=== PATIENT | male | born 1955 | race African-American/Black ===

== ENCOUNTER 2018-02-08 11:35 | Observation (INO) ==
[2018-02-08] MEDS ORDERED: DEXTROSE 5% NACL 0.45% 1,000 ML IV SCH (13:49)
[2018-02-08] MEDS ORDERED: MAGNESIUM SULF RIDER 4 GM in PREMIX 1 EACH IV PRN (13:49)
[2018-02-08] MEDS ORDERED: MAGNESIUM SULF RIDER 2 GM in PREMIX 1 EACH IV PRN (13:49)
[2018-02-08] MEDS ORDERED: guaiFENesin/DM ER 600-30 MG TABLET PO PRN (14:33)
[2018-02-08] MEDS ORDERED: ONDANSETRON 4 MG/2 ML VIAL IV PRN (14:33)
[2018-02-08] MEDS ORDERED: BISACODYL 5 MG TABLET PO PRN (14:33)
[2018-02-08] MEDS ORDERED: ZALEPLON 5 MG CAPSULE PO PRN (14:33)
[2018-02-08] MEDS ORDERED: ALBUTEROL 2.5 MG/3 ML NEB RESP TX PRN (15:06)
[2018-02-08] MEDS ORDERED: NON-FORMULARY MEDICATION (Albuterol Sulfate [Ventolin Hfa] 2 PUFF) INH PRN (15:06)
[2018-02-08 15:33] LABS: Albumin 3.5 G/DL (3.4-5.0); Bilirubin,Total 1.1 MG/DL (0.2-1.0); Calcium 8.8 MG/DL (8.5-10.1); Osmolality,Calculated 281.4 MOS/KG (273-304); Potassium 4.1 MMOL/L (3.5-5.1); Total Protein 7.4 G/DL (6.4-8.3)
[2018-02-08] MEDS ORDERED: ALUM/MAG/SIMETH/LIDO VISC 1:1 30 ML BOTTLE PO ONE (15:38)
[2018-02-08 17:47] LABS: Troponin I Only < 0.015 NG/ML (0.00-0.045)
[2018-02-08] MEDS ORDERED: DABIGATRAN 150 MG CAPSULE PO SCH (21:00)
[2018-02-08 21:30] LABS: Troponin I Only < 0.015 NG/ML (0.00-0.045)
[2018-02-08] MEDS: CARVEDILOL 3.125 MG TABLET PO SCH (21:48)
[2018-02-09 05:15] LABS: Basophils % 0.1 % (0.0-0.8); Eosinophils # 0.2 10*3/uL (0.0-0.87); Hematocrit 39.1 VOL% (42.0-52.0); Hemoglobin 13.6 GM/DL (14.0-18.0); Immature Granulocytes % 0.1 %; Immature Granulocytes Absolute 0.01 #; Lymphocytes # 1.7 10*3/uL (1.4-4.0); Lymphocytes % 24.7 % (21.2-54.2); Mean Corpuscular HGB Conc 34.8 GM/DL (32-36); Mean Corpuscular Hemoglobin 30 PG (27-34); Mean Corpuscular Volume 86.7 FL (87-102); Mean Platelet Volume 10.6 FL (9.6-12.0); Monocytes # 0.7 10*3/uL (0.11-0.8); Neutrophils # 4.3 10*3/uL (1.4-7.4); Neutrophils % 62.1 % (38.7-73.9); Platelet Count 133 T/CUMM (130-400); Red Blood Count 4.51 MC/CUMM (3.8-5.5); Red Cell Distribution Width 13.5 % (9.3-17.3); White Blood Count 6.9 T/CUMM (4-12)
[2018-02-09 05:45] LABS: Calcium 8.7 MG/DL (8.5-10.1); Osmolality,Calculated 283.3 MOS/KG (273-304); Potassium 3.9 MMOL/L (3.5-5.1)
[2018-02-09 05:46] LABS: Risk Ratio 3.38; VLDL CHOLESTEROL 20.2 MG/DL
[2018-02-09] MEDS ORDERED: ceFAZolin 1,000 MG in SYRINGE 1 EACH IV ONE (08:48)
[2018-02-09] MEDS ORDERED: ceFAZolin 1,000 MG VIAL IRRIG ONE (08:48)
[2018-02-09] MEDS ORDERED: ASPIRIN EC 81 MG TABLET PO SCH (09:00)
[2018-02-09] MEDS ORDERED: LOSARTAN 50 MG TABLET PO SCH ×2 (09:00→10:55)
[2018-02-09] MEDS ORDERED: LOSARTAN 25 MG TABLET PO SCH (09:00)
[2018-02-09] MEDS ORDERED: FUROSEMIDE 40 MG TABLET PO SCH (09:00)
[2018-02-09] MEDS ORDERED: HEPARIN/NACL 0.9% 2 UNITS/ML 1,000 ML IV ONE (11:38)
[2018-02-09] MEDS ORDERED: LIDOCAINE 1% 20 ML VIAL ONE ×2 (11:38→11:44)
[2018-02-09] MEDS ORDERED: ceFAZolin 1,000 MG VIAL ONE (11:38)
[2018-02-09] MEDS ORDERED: TISSUE ADHESIVE 1 EACH APPLICATOR TOP ONE (12:27)
[2018-02-09] MEDS: CARVEDILOL 3.125 MG TABLET PO SCH (13:22)
[2018-02-09] MEDS ORDERED: PROPOFOL 200 MG/20 ML VIAL IV ONE (13:24)
[2018-02-09] MEDS ORDERED: fentaNYL 100 MCG/2 ML VIAL ONE (13:24)
[2018-02-09] MEDS ORDERED: MIDAZOLAM 2 MG/2 ML VIAL ONE (13:24)
[2018-02-09] MEDS ORDERED: SODIUM CHLORIDE 0.9% 250 ML IV ONE (13:25)
[2018-02-09] MEDS: PANTOPRAZOLE 40 MG TABLET PO SCH (13:41)
[2018-02-09] MEDS: FUROSEMIDE 40 MG TABLET PO SCH (13:42)
[2018-02-09] MEDS: CARVEDILOL 6.25 MG TABLET PO SCH ×2 (13:42→20:40)
[2018-02-09] MEDS ORDERED: ACETAMINOPHEN 325 MG TABLET PO PRN (19:01)
[2018-02-09] MEDS: ceFAZolin 1,000 MG in SYRINGE 1 EACH IV SCH (20:40)
[2018-02-10] MEDS: ceFAZolin 1,000 MG in SYRINGE 1 EACH IV SCH (03:56)
[2018-02-10 05:18] LABS: Basophils % 0.1 % (0.0-0.8); Eosinophils # 0.2 10*3/uL (0.0-0.87); Eosinophils % 2.6 % (0.00-10.9); Hematocrit 41.3 VOL% (42.0-52.0); Hemoglobin 13.8 GM/DL (14.0-18.0); Immature Granulocytes % 0.3 %; Immature Granulocytes Absolute 0.02 #; Lymphocytes # 1.7 10*3/uL (1.4-4.0); Lymphocytes % 21.3 % (21.2-54.2); Mean Corpuscular HGB Conc 33.4 GM/DL (32-36); Mean Corpuscular Hemoglobin 30 PG (27-34); Mean Corpuscular Volume 88.2 FL (87-102); Mean Platelet Volume 10.8 FL (9.6-12.0); Monocytes # 0.8 10*3/uL (0.11-0.8); Monocytes % 10.3 % (1.7-12.7); Neutrophils # 5.1 10*3/uL (1.4-7.4); Neutrophils % 65.4 % (38.7-73.9); Platelet Count 123 T/CUMM (130-400); Red Blood Count 4.68 MC/CUMM (3.8-5.5); Red Cell Distribution Width 13.3 % (9.3-17.3); White Blood Count 7.8 T/CUMM (4-12)
[2018-02-10 05:31] LABS: Calcium 8.6 MG/DL (8.5-10.1); Osmolality,Calculated 282.3 MOS/KG (273-304); Potassium 4.1 MMOL/L (3.5-5.1)
[2018-02-10 05:32] LABS: Calcium 8.7 MG/DL (8.5-10.1); Osmolality,Calculated 280.4 MOS/KG (273-304); Potassium 4.1 MMOL/L (3.5-5.1)
[2018-02-10] MEDS: CARVEDILOL 6.25 MG TABLET PO SCH (08:47)
[2018-02-10] MEDS: PANTOPRAZOLE 40 MG TABLET PO SCH (08:47)
[2018-02-10] MEDS: FUROSEMIDE 40 MG TABLET PO SCH (08:48)
[2018-02-10] MEDS ORDERED: LOSARTAN 50 MG TABLET PO SCH (09:37)
[2018-02-10 12:12] VITALS: BP 140/74
== END 2018-02-10 12:21 | disposition home or self-care (01) ==
LOC: N.ED 11:35 → N.EDINP 11:35 → N.TELEN 13:43
PROVIDERS: ADMIT Internal Medicine Interventional Cardiology; ATTEND Internal Medicine Interventional Cardiology
PROC: CLDCICD (2018-02-09 12:15)

== ENCOUNTER 2018-05-18 05:56 | Inpatient (IN) ==
[2018-05-12 11:50] LABS: Basophils % 0.2 % (0.0-0.8); Eosinophils # 0.5 10*3/uL (0.0-0.87); Eosinophils % 9.3 % (0.00-10.9); Hematocrit 36.4 VOL% (42.0-52.0); Hemoglobin 12.5 GM/DL (14.0-18.0); Immature Granulocytes % 0.2 %; Immature Granulocytes Absolute 0.01 #; Lymphocytes # 1.3 10*3/uL (1.4-4.0); Lymphocytes % 22.4 % (21.2-54.2); Mean Corpuscular HGB Conc 34.3 GM/DL (32-36); Mean Corpuscular Hemoglobin 30 PG (27-34); Mean Corpuscular Volume 85.8 FL (87-102); Mean Platelet Volume 10.4 FL (9.6-12.0); Monocytes # 0.6 10*3/uL (0.11-0.8); Monocytes % 9.5 % (1.7-12.7); Neutrophils # 3.4 10*3/uL (1.4-7.4); Neutrophils % 58.4 % (38.7-73.9); Platelet Count 148 T/CUMM (130-400); Red Blood Count 4.24 MC/CUMM (3.8-5.5); White Blood Count 5.8 T/CUMM (4-12)
[2018-05-12 12:09] LABS: INR 1.2; PT Patient Result 12.8 SECS; Partial Thromboplastin Time 36.6 SECS (0-40)
[2018-05-12 12:10] LABS: Albumin 3.3 G/DL (3.4-5.0); Bilirubin,Total 0.7 MG/DL (0.2-1.0); Calcium 8.6 MG/DL (8.5-10.1); Osmolality,Calculated 277.4 MOS/KG (273-304); Total Protein 7.8 G/DL (6.4-8.3)
[2018-05-12 12:20] LABS: Apearance,Urine CLEAR (Clear); Bilirubin,Urine Negative (Negative); Blood, Urine Negative (Negative); Glucose,Urine (UA) Negative (Negative); Hyaline Casts,Urine 1 /LPF (0-3); Ketones,Urine Negative (Negative); Mucus,Urine Occasional /LPF (Occasional); Nitrite,Urine Negative (Negative); Protein,Urine Negative; RBC,Urine <1 /HPF (0-4); Squamous Epithelial Cell,Urine Occasional /HPF (0-10); Urine Color Yellow (Yellow); Urine Specific Gravity 1.013 (1.001-1.035); Urine Urobilinogen < 2.0 EU/DL (0.2-1.0); WBC,Urine 1 /HPF (0-6)
[2018-05-18] MEDS ORDERED: DIAZEPAM 5 MG TABLET ONE (06:03)
[2018-05-18] MEDS ORDERED: ceFAZolin 1,000 MG VIAL ONE (06:03)
[2018-05-18] MEDS ORDERED: VANCOMYCIN 1,000 MG VIAL ONE (06:03)
[2018-05-18] MEDS ORDERED: FAMOTIDINE 20 MG TABLET ONE (06:03)
[2018-05-18] MEDS ORDERED: ALBUTEROL/IPRATROPIUM 3 ML NEB RESP TX ONE (06:30)
[2018-05-18] MEDS ORDERED: DIAZEPAM 5 MG TABLET PO ONE (06:30)
[2018-05-18] MEDS ORDERED: FAMOTIDINE 20 MG TABLET PO ONE (06:30)
[2018-05-18] MEDS ORDERED: TRANEXAMIC ACID 1,000 MG/10 ML VIAL ONE (06:40)
[2018-05-18] MEDS ORDERED: ceFAZolin 1,000 MG in SYRINGE 1 EACH IV ONE (07:00)
[2018-05-18] MEDS ORDERED: LACTATED RINGERS 1,000 ML IV SCH (07:00)
[2018-05-18] MEDS ORDERED: VANCOMYCIN INJ 1,000 MG in SODIUM CHLORIDE 0.9% 250 ML IV ONE (07:00)
[2018-05-18] MEDS ORDERED: BACITRACIN OINT 0.9 GM PACK TOP ONE (08:06)
[2018-05-18] MEDS ORDERED: ALBUTEROL 2.5 MG/3 ML NEB RESP TX PRN (08:39)
[2018-05-18] MEDS ORDERED: diphenhydrAMINE CAP 25 MG CAPSULE PO PRN (08:43)
[2018-05-18] MEDS ORDERED: oxyCODONE IR 5 MG TABLET PO PRN ×2 (08:43)
[2018-05-18] MEDS ORDERED: ONDANSETRON 4 MG/2 ML VIAL IV PRN ×2 (08:43→09:00)
[2018-05-18] MEDS ORDERED: MORPHINE 4 MG/1 ML VIAL IV PRN ×2 (08:43)
[2018-05-18] MEDS ORDERED: ROPIVACAINE 0.5% 30 ML VIAL ONE (08:44)
[2018-05-18] MEDS ORDERED: HYDROmorphone 2 MG/1 ML VIAL ONE (08:47)
[2018-05-18] MEDS: HYDROmorphone 2 MG/1 ML VIAL IV PRN ×2 (08:49→09:00)
[2018-05-18] MEDS: ALBUTEROL 2.5 MG/3 ML NEB RESP TX SCH ×2 (09:04→23:08)
[2018-05-18] MEDS: LACTATED RINGERS 1,000 ML IV SCH ×2 (10:28→21:51)
[2018-05-18] MEDS: DOCUSATE SODIUM 100 MG CAPSULE PO SCH ×2 (10:29→21:36)
[2018-05-18] MEDS: FLUTICASONE 50 MCG NASAL SPRAY 16 GM BOTTLE BOTH NARES SCH (10:30)
[2018-05-18] MEDS: KETOROLAC 30 MG/1 ML VIAL IV SCH ×3 (11:36→21:35)
[2018-05-18] MEDS ORDERED: SEVOFLURANE 1 UNIT/15 MINUTE INH ONE (12:54)
[2018-05-18] MEDS ORDERED: MIDAZOLAM 2 MG/2 ML VIAL ONE (12:54)
[2018-05-18] MEDS ORDERED: fentaNYL 100 MCG/2 ML VIAL ONE (12:54)
[2018-05-18] MEDS ORDERED: PROPOFOL 200 MG/20 ML VIAL IV ONE (12:54)
[2018-05-18] MEDS ORDERED: ONDANSETRON 4 MG/2 ML VIAL ONE (12:54)
[2018-05-18] MEDS ORDERED: LACTATED RINGERS 1,000 ML IV ONE (12:55)
[2018-05-18] MEDS ORDERED: ROCURONIUM 100 MG/10 ML VIAL IV ONE (12:55)
[2018-05-18] MEDS: ACETAMINOPHEN 500 MG TABLET PO SCH ×2 (15:25→21:36)
[2018-05-18] MEDS: ceFAZolin 1,000 MG in SYRINGE 1 EACH IV SCH (17:23)
[2018-05-18] MEDS ORDERED: ZALEPLON 5 MG CAPSULE PO PRN (21:00)
[2018-05-18] MEDS: DABIGATRAN 150 MG CAPSULE PO SCH (21:36)
[2018-05-18] MEDS: CARVEDILOL 6.25 MG TABLET PO SCH (21:36)
[2018-05-19] MEDS: ceFAZolin 1,000 MG in SYRINGE 1 EACH IV SCH (00:57)
[2018-05-19] MEDS: KETOROLAC 30 MG/1 ML VIAL IV SCH (03:45)
[2018-05-19] MEDS: ACETAMINOPHEN 500 MG TABLET PO SCH ×2 (03:45→09:54)
[2018-05-19 06:46] LABS: Basophils % 0.1 % (0.0-0.8); Eosinophils # 0.3 10*3/uL (0.0-0.87); Eosinophils % 3.5 % (0.00-10.9); Hematocrit 29.7 VOL% (42.0-52.0); Hemoglobin 10.2 GM/DL (14.0-18.0); Immature Granulocytes % 0.4 %; Immature Granulocytes Absolute 0.03 #; Lymphocytes # 1.1 10*3/uL (1.4-4.0); Lymphocytes % 15.5 % (21.2-54.2); Mean Corpuscular HGB Conc 34.3 GM/DL (32-36); Mean Corpuscular Hemoglobin 29 PG (27-34); Mean Corpuscular Volume 85.6 FL (87-102); Mean Platelet Volume 10.6 FL (9.6-12.0); Monocytes # 0.8 10*3/uL (0.11-0.8); Monocytes % 10.7 % (1.7-12.7); Neutrophils # 5.1 10*3/uL (1.4-7.4); Neutrophils % 69.8 % (38.7-73.9); Platelet Count 103 T/CUMM (130-400); Red Blood Count 3.47 MC/CUMM (3.8-5.5); White Blood Count 7.4 T/CUMM (4-12)
[2018-05-19 07:00] LABS: Calcium 8.3 MG/DL (8.5-10.1); Osmolality,Calculated 278.3 MOS/KG (273-304); Potassium 4.1 MMOL/L (3.5-5.1)
[2018-05-19] MEDS: ALBUTEROL 2.5 MG/3 ML NEB RESP TX SCH ×2 (07:10→19:02)
[2018-05-19] MEDS ORDERED: MAGNESIUM HYDROXIDE SUSP 30 ML UDCUP PO PRN (09:00)
[2018-05-19] MEDS: DOCUSATE SODIUM 100 MG CAPSULE PO SCH ×2 (09:54→21:00)
[2018-05-19] MEDS: CARVEDILOL 6.25 MG TABLET PO SCH ×2 (09:54→21:00)
[2018-05-19] MEDS: LOSARTAN 50 MG TABLET PO SCH (09:55)
[2018-05-19] MEDS: FLUTICASONE 50 MCG NASAL SPRAY 16 GM BOTTLE BOTH NARES SCH (09:55)
[2018-05-19] MEDS: DABIGATRAN 150 MG CAPSULE PO SCH ×2 (09:55→21:00)
[2018-05-19] MEDS ORDERED: MAGNESIUM SULF RIDER 4 GM in PREMIX 1 EACH IV PRN (09:55)
[2018-05-19] MEDS ORDERED: MAGNESIUM SULF RIDER 2 GM in PREMIX 1 EACH IV PRN (09:55)
[2018-05-19] MEDS: FUROSEMIDE 40 MG TABLET PO SCH (09:55)
[2018-05-19] MEDS: CELECOXIB 200 MG CAPSULE PO SCH (16:13)
[2018-05-19] MEDS: LACTATED RINGERS 1,000 ML IV SCH (18:45)
[2018-05-20 06:58] LABS: Basophils % 0.1 % (0.0-0.8); Eosinophils # 0.4 10*3/uL (0.0-0.87); Hematocrit 31.2 VOL% (42.0-52.0); Hemoglobin 10.7 GM/DL (14.0-18.0); Immature Granulocytes % 0.3 %; Immature Granulocytes Absolute 0.03 #; Lymphocytes # 1.2 10*3/uL (1.4-4.0); Lymphocytes % 13.4 % (21.2-54.2); Mean Corpuscular HGB Conc 34.3 GM/DL (32-36); Mean Corpuscular Hemoglobin 30 PG (27-34); Mean Corpuscular Volume 86.4 FL (87-102); Mean Platelet Volume 11.8 FL (9.6-12.0); Monocytes # 0.8 10*3/uL (0.11-0.8); Monocytes % 9.6 % (1.7-12.7); Neutrophils # 6.2 10*3/uL (1.4-7.4); Neutrophils % 71.6 % (38.7-73.9); Platelet Count 107 T/CUMM (130-400); Red Blood Count 3.61 MC/CUMM (3.8-5.5); White Blood Count 8.6 T/CUMM (4-12)
[2018-05-20 07:20] LABS: Calcium 8.3 MG/DL (8.5-10.1); Osmolality,Calculated 281.3 MOS/KG (273-304)
[2018-05-20] MEDS: ALBUTEROL 2.5 MG/3 ML NEB RESP TX SCH (07:51)
[2018-05-20] MEDS: CELECOXIB 200 MG CAPSULE PO SCH (08:54)
[2018-05-20] MEDS: DOCUSATE SODIUM 100 MG CAPSULE PO SCH (08:54)
[2018-05-20] MEDS: FLUTICASONE 50 MCG NASAL SPRAY 16 GM BOTTLE BOTH NARES SCH (08:54)
[2018-05-20] MEDS: DABIGATRAN 150 MG CAPSULE PO SCH (08:54)
[2018-05-20] MEDS: LOSARTAN 50 MG TABLET PO SCH (08:54)
[2018-05-20] MEDS: CARVEDILOL 6.25 MG TABLET PO SCH (08:55)
[2018-05-20] MEDS: FUROSEMIDE 40 MG TABLET PO SCH (08:55)
[2018-05-20 11:26] VITALS: BP 151/74
== END 2018-05-20 15:15 | disposition home health service (06) | DRG 470 ==
LOC: N.OR 05:56 → N.SDSINP 05:58 → N.OR 05:59 → N.SDSINP 08:44 → N.3E 09:37
PROVIDERS: ADMIT Orthopaedic Surgery; ATTEND Orthopaedic Surgery

== ENCOUNTER 2018-07-26 03:50 | Inpatient (IN) ==
[2018-07-26] MEDS ORDERED: ONDANSETRON 4 MG/2 ML VIAL IV PRN (09:58)
[2018-07-26] MEDS ORDERED: MORPHINE 4 MG/1 ML VIAL IV PRN (09:58)
[2018-07-26] MEDS: SODIUM CHLORIDE 0.9% 1,000 ML IV SCH (13:00)
[2018-07-26] MEDS: ALBUTEROL/IPRATROPIUM 3 ML NEB RESP TX SCH (20:02)
[2018-07-26] MEDS ORDERED: ALBUTEROL 2.5 MG/3 ML NEB RESP TX SCH (21:00)
[2018-07-26] MEDS: CARVEDILOL 6.25 MG TABLET PO SCH (21:13)
[2018-07-26] MEDS: DABIGATRAN 150 MG CAPSULE PO SCH (21:13)
[2018-07-26] MEDS: ACETAMINOPHEN 500 MG TABLET PO PRN (22:21)
[2018-07-27] MEDS: ALBUTEROL/IPRATROPIUM 3 ML NEB RESP TX SCH ×4 (00:18→19:30)
[2018-07-27] MEDS: SODIUM CHLORIDE 0.9% 1,000 ML IV SCH ×2 (00:54→17:48)
[2018-07-27 06:39] LABS: Basophils % 0.2 % (0.0-0.8); Eosinophils # 0.4 10*3/uL (0.0-0.87); Eosinophils % 10.2 % (0.00-10.9); Hematocrit 34.9 VOL% (42.0-52.0); Hemoglobin 11.8 GM/DL (14.0-18.0); Immature Granulocytes % 0.2 %; Immature Granulocytes Absolute 0.01 #; Lymphocytes # 1.2 10*3/uL (1.4-4.0); Lymphocytes % 28.5 % (21.2-54.2); Mean Corpuscular HGB Conc 33.8 GM/DL (32-36); Mean Corpuscular Hemoglobin 30 PG (27-34); Mean Corpuscular Volume 87.9 FL (87-102); Mean Platelet Volume 11.5 FL (9.6-12.0); Monocytes # 0.5 10*3/uL (0.11-0.8); Monocytes % 13.2 % (1.7-12.7); Neutrophils # 1.9 10*3/uL (1.4-7.4); Neutrophils % 47.7 % (38.7-73.9); Platelet Count 113 T/CUMM (130-400); Red Blood Count 3.97 MC/CUMM (3.8-5.5); Red Cell Distribution Width 13.3 % (9.3-17.3)
[2018-07-27 07:21] LABS: Albumin 2.7 G/DL (3.4-5.0); Bilirubin,Total 3.1 MG/DL (0.2-1.0); Calcium 8.6 MG/DL (8.5-10.1); Osmolality,Calculated 275.4 MOS/KG (273-304); Risk Ratio 2.76; Thyroid Stimulating Hormone 0.243 uIU/ml (0.358-3.74); Total Protein 6.7 G/DL (6.4-8.3); VLDL CHOLESTEROL 16.6 MG/DL
[2018-07-27] MEDS: FLUTICASONE 50 MCG NASAL SPRAY 16 GM BOTTLE BOTH NARES SCH (08:41)
[2018-07-27] MEDS: DABIGATRAN 150 MG CAPSULE PO SCH ×2 (08:41→20:34)
[2018-07-27] MEDS: LOSARTAN 50 MG TABLET PO SCH (08:41)
[2018-07-27] MEDS: CARVEDILOL 6.25 MG TABLET PO SCH ×2 (08:41→20:34)
[2018-07-27] MEDS: PIPERACILLIN/TAZOBACTAM 3,375 MG in SODIUM CHLORIDE 0.9% 100 ML IV SCH ×2 (10:57→17:48)
[2018-07-28] MEDS: ALBUTEROL/IPRATROPIUM 3 ML NEB RESP TX SCH ×4 (01:31→19:21)
[2018-07-28] MEDS: PIPERACILLIN/TAZOBACTAM 3,375 MG in SODIUM CHLORIDE 0.9% 100 ML IV SCH ×3 (02:55→18:19)
[2018-07-28] MEDS: SODIUM CHLORIDE 0.9% 1,000 ML IV SCH ×3 (03:17→16:07)
[2018-07-28 06:51] LABS: Basophils % 0.3 % (0.0-0.8); Eosinophils # 0.6 10*3/uL (0.0-0.87); Eosinophils % 10.2 % (0.00-10.9); Hematocrit 34.2 VOL% (42.0-52.0); Hemoglobin 11.4 GM/DL (14.0-18.0); Immature Granulocytes % 0.2 %; Immature Granulocytes Absolute 0.01 #; Lymphocytes # 1.6 10*3/uL (1.4-4.0); Lymphocytes % 27.7 % (21.2-54.2); Mean Corpuscular HGB Conc 33.3 GM/DL (32-36); Mean Corpuscular Hemoglobin 30 PG (27-34); Mean Corpuscular Volume 88.8 FL (87-102); Mean Platelet Volume 10.6 FL (9.6-12.0); Monocytes # 0.7 10*3/uL (0.11-0.8); Monocytes % 11.7 % (1.7-12.7); Neutrophils % 49.9 % (38.7-73.9); Platelet Count 111 T/CUMM (130-400); Red Blood Count 3.85 MC/CUMM (3.8-5.5); Red Cell Distribution Width 13.6 % (9.3-17.3); White Blood Count 5.9 T/CUMM (4-12)
[2018-07-28 07:24] LABS: Albumin 2.6 G/DL (3.4-5.0); Bilirubin,Total 0.9 MG/DL (0.2-1.0); Calcium 8.1 MG/DL (8.5-10.1); Osmolality,Calculated 280.1 MOS/KG (273-304); Potassium 3.7 MMOL/L (3.5-5.1)
[2018-07-28] MEDS: LOSARTAN 50 MG TABLET PO SCH (09:36)
[2018-07-28] MEDS: FLUTICASONE 50 MCG NASAL SPRAY 16 GM BOTTLE BOTH NARES SCH (09:36)
[2018-07-28] MEDS: CARVEDILOL 6.25 MG TABLET PO SCH (09:36)
[2018-07-28] MEDS ORDERED: LOSARTAN 50 MG TABLET PO ONE (16:43)
[2018-07-28] MEDS: CARVEDILOL 12.5 MG TABLET PO SCH (20:33)
[2018-07-29] MEDS: ALBUTEROL/IPRATROPIUM 3 ML NEB RESP TX SCH ×4 (00:09→20:03)
[2018-07-29] MEDS: hydrALAZINE 20 MG/1 ML VIAL IV PRN ×2 (00:56→21:00)
[2018-07-29] MEDS: SODIUM CHLORIDE 0.9% 1,000 ML IV SCH ×3 (02:43→20:57)
[2018-07-29] MEDS: PIPERACILLIN/TAZOBACTAM 3,375 MG in SODIUM CHLORIDE 0.9% 100 ML IV SCH ×3 (02:47→18:21)
[2018-07-29 05:11] LABS: Basophils % 0.4 % (0.0-0.8); Eosinophils # 0.5 10*3/uL (0.0-0.87); Eosinophils % 10.1 % (0.00-10.9); Hematocrit 33.6 VOL% (42.0-52.0); Hemoglobin 11.7 GM/DL (14.0-18.0); Immature Granulocytes % 0.2 %; Immature Granulocytes Absolute 0.01 #; Lymphocytes # 1.6 10*3/uL (1.4-4.0); Lymphocytes % 29.3 % (21.2-54.2); Mean Corpuscular HGB Conc 34.8 GM/DL (32-36); Mean Corpuscular Hemoglobin 30 PG (27-34); Mean Corpuscular Volume 86.4 FL (87-102); Mean Platelet Volume 10.3 FL (9.6-12.0); Monocytes # 0.5 10*3/uL (0.11-0.8); Neutrophils # 2.7 10*3/uL (1.4-7.4); Platelet Count 118 T/CUMM (130-400); Red Blood Count 3.89 MC/CUMM (3.8-5.5); Red Cell Distribution Width 13.5 % (9.3-17.3); White Blood Count 5.4 T/CUMM (4-12)
[2018-07-29 05:31] LABS: Albumin 2.7 G/DL (3.4-5.0); Bilirubin,Total 1.1 MG/DL (0.2-1.0); Calcium 8.7 MG/DL (8.5-10.1); Osmolality,Calculated 280.1 MOS/KG (273-304); Potassium 3.8 MMOL/L (3.5-5.1); Total Protein 6.9 G/DL (6.4-8.3)
[2018-07-29] MEDS: LOSARTAN 50 MG TABLET PO SCH (09:15)
[2018-07-29] MEDS: CARVEDILOL 12.5 MG TABLET PO SCH ×2 (09:15→21:00)
[2018-07-29] MEDS: ACETAMINOPHEN 500 MG TABLET PO PRN (09:15)
[2018-07-29] MEDS: FLUTICASONE 50 MCG NASAL SPRAY 16 GM BOTTLE BOTH NARES SCH (09:15)
[2018-07-29] MEDS: amLODIPine 5 MG TABLET PO SCH (09:18)
[2018-07-29] MEDS ORDERED: LOSARTAN 50 MG TABLET PO ONE (16:23)
[2018-07-30] MEDS: ALBUTEROL/IPRATROPIUM 3 ML NEB RESP TX SCH ×4 (01:01→19:04)
[2018-07-30] MEDS: PIPERACILLIN/TAZOBACTAM 3,375 MG in SODIUM CHLORIDE 0.9% 100 ML IV SCH ×3 (02:30→18:26)
[2018-07-30 06:06] LABS: Basophils % 0.3 % (0.0-0.8); Eosinophils # 0.5 10*3/uL (0.0-0.87); Eosinophils % 8.5 % (0.00-10.9); Hematocrit 34.1 VOL% (42.0-52.0); Hemoglobin 11.8 GM/DL (14.0-18.0); Immature Granulocytes % 0.2 %; Immature Granulocytes Absolute 0.01 #; Lymphocytes # 1.6 10*3/uL (1.4-4.0); Mean Corpuscular HGB Conc 34.6 GM/DL (32-36); Mean Corpuscular Hemoglobin 30 PG (27-34); Mean Corpuscular Volume 86.3 FL (87-102); Mean Platelet Volume 11.1 FL (9.6-12.0); Monocytes # 0.5 10*3/uL (0.11-0.8); Neutrophils # 3.4 10*3/uL (1.4-7.4); Platelet Count 138 T/CUMM (130-400); Red Blood Count 3.95 MC/CUMM (3.8-5.5); Red Cell Distribution Width 13.6 % (9.3-17.3)
[2018-07-30 06:27] LABS: Albumin 2.7 G/DL (3.4-5.0); Bilirubin,Total 0.9 MG/DL (0.2-1.0); Osmolality,Calculated 277.4 MOS/KG (273-304); Potassium 3.8 MMOL/L (3.5-5.1); Total Protein 7.1 G/DL (6.4-8.3)
[2018-07-30] MEDS: SODIUM CHLORIDE 0.9% 1,000 ML IV SCH (08:08)
[2018-07-30] MEDS: CARVEDILOL 12.5 MG TABLET PO SCH ×2 (09:01→21:05)
[2018-07-30] MEDS: amLODIPine 5 MG TABLET PO SCH (09:01)
[2018-07-30] MEDS: LOSARTAN 50 MG TABLET PO SCH (09:01)
[2018-07-30] MEDS: FLUTICASONE 50 MCG NASAL SPRAY 16 GM BOTTLE BOTH NARES SCH (09:03)
[2018-07-30] MEDS ORDERED: DIAZEPAM 5 MG TABLET PO ONE (10:00)
[2018-07-30] MEDS ORDERED: FAMOTIDINE 20 MG TABLET PO ONE (10:00)
[2018-07-30] MEDS ORDERED: BUPIVACAINE 0.25% /EPI 10 ML VIAL ONE (11:39)
[2018-07-30] MEDS ORDERED: LIDOCAINE 1%/EPI INJ 20 ML VIAL ONE (11:40)
[2018-07-30] MEDS ORDERED: fentaNYL 100 MCG/2 ML VIAL ONE (14:25)
[2018-07-30] MEDS ORDERED: SEVOFLURANE 1 UNIT/15 MINUTE INH ONE (14:25)
[2018-07-30] MEDS ORDERED: MIDAZOLAM 2 MG/2 ML VIAL ONE (14:25)
[2018-07-30] MEDS ORDERED: PROPOFOL 200 MG/20 ML VIAL IV ONE (14:25)
[2018-07-30] MEDS ORDERED: ROCURONIUM 100 MG/10 ML VIAL IV ONE (14:26)
[2018-07-30] MEDS ORDERED: ACETAMINOPHEN 1,000 MG/100 ML VIAL IV ONE (14:26)
[2018-07-30] MEDS ORDERED: ONDANSETRON 4 MG/2 ML VIAL ONE (14:26)
[2018-07-30] MEDS ORDERED: KETOROLAC 30 MG/1 ML VIAL ONE (14:26)
[2018-07-30] MEDS ORDERED: GLYCOPYRROLATE 0.4 MG/2 ML VIAL ONE (14:26)
[2018-07-31] MEDS: ALBUTEROL/IPRATROPIUM 3 ML NEB RESP TX SCH ×2 (00:41→08:06)
[2018-07-31] MEDS: PIPERACILLIN/TAZOBACTAM 3,375 MG in SODIUM CHLORIDE 0.9% 100 ML IV SCH ×2 (02:54→10:40)
[2018-07-31] MEDS: CARVEDILOL 12.5 MG TABLET PO SCH (08:45)
[2018-07-31] MEDS: LOSARTAN 50 MG TABLET PO SCH (08:46)
[2018-07-31] MEDS: FLUTICASONE 50 MCG NASAL SPRAY 16 GM BOTTLE BOTH NARES SCH (08:46)
[2018-07-31] MEDS: amLODIPine 5 MG TABLET PO SCH (08:46)
[2018-07-31 08:58] LABS: Basophils % 0.2 % (0.0-0.8); Eosinophils # 0.3 10*3/uL (0.0-0.87); Eosinophils % 5.2 % (0.00-10.9); Hematocrit 35.9 VOL% (42.0-52.0); Hemoglobin 12.2 GM/DL (14.0-18.0); Immature Granulocytes % 0.2 %; Immature Granulocytes Absolute 0.01 #; Lymphocytes # 1.3 10*3/uL (1.4-4.0); Lymphocytes % 20.7 % (21.2-54.2); Mean Corpuscular Hemoglobin 30 PG (27-34); Mean Corpuscular Volume 88.9 FL (87-102); Mean Platelet Volume 10.3 FL (9.6-12.0); Monocytes # 0.5 10*3/uL (0.11-0.8); Monocytes % 7.7 % (1.7-12.7); Neutrophils # 4.2 10*3/uL (1.4-7.4); Platelet Count 138 T/CUMM (130-400); Red Blood Count 4.04 MC/CUMM (3.8-5.5); Red Cell Distribution Width 13.8 % (9.3-17.3); White Blood Count 6.4 T/CUMM (4-12)
[2018-07-31] MEDS: DABIGATRAN 150 MG CAPSULE PO SCH (10:38)
[2018-07-31 17:24] VITALS: BP 166/76
== END 2018-07-31 15:18 | disposition home or self-care (01) | DRG 418 ==
LOC: EDUNIT# → N.ED 03:50 → N.EDINP 09:58 → N.3E 11:53
PROVIDERS: ADMIT Internal Medicine; ATTEND Internal Medicine
PROC: LAPCHOL (2018-07-30 12:57)

== ENCOUNTER 2022-12-07 02:15 | Observation (INO) ==
[2022-12-07 02:45] LABS: Basophils % 0.3 % (0.0-0.8); Eosinophils # 0.2 10*3/uL (0.0-0.87); Eosinophils % 1.9 % (0.00-10.9); Hematocrit 41.4 VOL% (42.0-52.0); Hemoglobin 14.2 GM/DL (14.0-18.0); Immature Granulocytes % 0.3 %; Immature Granulocytes Absolute 0.03 #; Lymphocytes # 1.9 10*3/uL (1.4-4.0); Lymphocytes % 16.3 % (21.2-54.2); Mean Corpuscular HGB Conc 34.3 GM/DL (32-36); Mean Platelet Volume 10.6 FL (9.6-12.0); Monocytes % 8.2 % (1.7-12.7); Platelet Count 172 T/CUMM (130-400); Red Blood Count 4.65 MC/CUMM (3.8-5.5); Red Cell Distribution Width 13.6 % (9.3-17.3); White Blood Count 11.8 T/CUMM (4-12)
[2022-12-07 03:00] LABS: Albumin 3.5 G/DL (3.4-5.0); Bilirubin,Total 0.5 MG/DL (0.20-1.00); Calcium 9.2 MG/DL (8.5-10.1); Osmolality,Calculated 284.1 MOS/KG (273-304); Potassium 3.6 MMOL/L (3.5-5.1); Total Protein 7.7 G/DL (6.4-8.2)
[2022-12-07] MEDS ORDERED: ASPIRIN 325 MG TABLET PO STA (03:06)
[2022-12-07] MEDS ORDERED: ENOXAPARIN 30 MG/0.3 ML SYRINGE SUBCUT STA (03:06)
[2022-12-07] MEDS ORDERED: LABETALOL 20 MG/4 ML SYRINGE IV STA (03:11)
[2022-12-07 03:18] LABS: Anisocytosis 1+; Eosinophils 1 % (0-10); Lymphocytes 21 % (20-55); Macrocytosis Slight; Platelet Estimate Normal; Total Cells Counted 100
[2022-12-07] MEDS ORDERED: ENOXAPARIN 100 MG/ML SYRINGE SUBCUT ONE (03:19)
[2022-12-07] MEDS ORDERED: GLUCAGON 1 MG VIAL IM PRN (04:00)
[2022-12-07] MEDS ORDERED: ONDANSETRON 4 MG/2 ML VIAL IV PRN (04:00)
[2022-12-07] MEDS ORDERED: MORPHINE 2 MG/1 ML SYRINGE IV PRN (04:00)
[2022-12-07] MEDS ORDERED: DEXTROSE 10% 250 ML BAG IV PRN (04:00)
[2022-12-07] MEDS ORDERED: ALBUTEROL 2.5 MG/3 ML NEB RESP TX PRN (04:38)
[2022-12-07 05:11] LABS: Risk Ratio 4.32; VLDL Cholesterol 35.4 MG/DL
[2022-12-07] MEDS ORDERED: ENOXAPARIN 100 MG/ML SYRINGE SUBCUT SCH (06:30)
[2022-12-07] MEDS: INSULIN LISPRO 100 UNIT/ML SUBCUT SCH ×4 (08:42→21:48)
[2022-12-07] MEDS: LOSARTAN 50 MG TABLET PO SCH (08:51)
[2022-12-07] MEDS: ASPIRIN EC 81 MG TABLET PO SCH (08:51)
[2022-12-07] MEDS: METOPROLOL SUCCINATE XL 25 MG TABLET PO SCH (08:51)
[2022-12-07] MEDS: FUROSEMIDE 40 MG TABLET PO SCH (08:51)
[2022-12-07] MEDS: PANTOPRAZOLE 40 MG TABLET PO SCH (08:52)
[2022-12-07] MEDS: FLUTICASONE 50 MCG NASAL SPRAY 16 GM BOTTLE BOTH NARES SCH (08:56)
[2022-12-07] MEDS ORDERED: DABIGATRAN 150 MG CAPSULE PO SCH (09:00)
[2022-12-07] MEDS ORDERED: INFLUENZA VIRUS VACCINE 0.5 ML SYRINGE IM ONE (09:59)
[2022-12-07] MEDS: DABIGATRAN 150 MG CAPSULE PO SCH (21:46)
[2022-12-08 04:58] LABS: Basophils % 0.3 % (0.0-0.8); Eosinophils # 0.3 10*3/uL (0.0-0.87); Eosinophils % 3.4 % (0.00-10.9); Hematocrit 38.9 VOL% (42.0-52.0); Immature Granulocytes % 0.3 %; Immature Granulocytes Absolute 0.02 #; Lymphocytes % 25.4 % (21.2-54.2); Mean Corpuscular HGB Conc 33.4 GM/DL (32-36); Mean Corpuscular Volume 90.7 FL (87-102); Mean Platelet Volume 10.8 FL (9.6-12.0); Monocytes # 0.9 10*3/uL (0.11-0.8); Monocytes % 11.1 % (1.7-12.7); Neutrophils % 59.5 % (38.7-73.9); Platelet Count 151 T/CUMM (130-400); Red Blood Count 4.29 MC/CUMM (3.8-5.5); Red Cell Distribution Width 13.5 % (9.3-17.3); White Blood Count 7.7 T/CUMM (4-12)
[2022-12-08 05:23] LABS: Bilirubin,Total 0.7 MG/DL (0.20-1.00); Calcium 8.8 MG/DL (8.5-10.1); Osmolality,Calculated 283.1 MOS/KG (273-304); Potassium 3.5 MMOL/L (3.5-5.1); Total Protein 6.9 G/DL (6.4-8.2)
[2022-12-08] MEDS: hydrALAZINE 20 MG/1 ML VIAL IV PRN ×2 (05:31→12:55)
[2022-12-08] MEDS: INSULIN LISPRO 100 UNIT/ML SUBCUT SCH ×2 (08:43→12:43)
[2022-12-08] MEDS ORDERED: DAPAGLIFLOZIN 10 MG TABLET PO SCH (09:00)
[2022-12-08] MEDS ORDERED: SPIRONOLACTONE 25 MG TABLET PO SCH (09:00)
[2022-12-08] MEDS: PANTOPRAZOLE 40 MG TABLET PO SCH (09:36)
[2022-12-08] MEDS: DABIGATRAN 150 MG CAPSULE PO SCH (09:36)
[2022-12-08] MEDS: METOPROLOL SUCCINATE XL 25 MG TABLET PO SCH (09:37)
[2022-12-08] MEDS: ASPIRIN EC 81 MG TABLET PO SCH (09:37)
[2022-12-08] MEDS: LOSARTAN 50 MG TABLET PO SCH (09:37)
[2022-12-08] MEDS: FUROSEMIDE 40 MG TABLET PO SCH (09:37)
[2022-12-08] MEDS: FLUTICASONE 50 MCG NASAL SPRAY 16 GM BOTTLE BOTH NARES SCH (09:39)
[2022-12-08] MEDS ORDERED: METOPROLOL SUCCINATE XL 25 MG TABLET PO ONE (09:59)
[2022-12-08] MEDS ORDERED: POTASSIUM CHLORIDE 20 MEQ TABLET PO ONE (10:03)
[2022-12-08 11:42] VITALS: BP 182/81
[2022-12-09] MEDS ORDERED: METOPROLOL SUCCINATE XL 50 MG TABLET PO SCH (09:00)
== END 2022-12-08 16:00 | disposition home or self-care (01) ==
LOC: SUATTDRO → N.TELEN 02:15 → N.ED 02:15 → SUATTDRO 04:00 → N.TELEN 08:29
PROVIDERS: ADMIT Internal Medicine; ATTEND Internal Medicine Geriatric Medicine